=== PATIENT | female | born 2000 | race Caucasian/White ===

== ENCOUNTER 2018-09-18 10:26 | Emergency (ER) | payer BC ==
[~2018-09-18] VITALS: Ht 162.6 cm; Wt 86.2 kg
[2018-09-18 11:05] VITALS: BP 124/83
[2018-09-18] MEDS ORDERED: METH4TAB2 PO (11:50)
--- NOTE | 2018-09-18 11:50 | PHYS DOC ---
Past Medical History Past Medical History: Other Additional Past Medical Histor: ADD Past Surgical History: Other Additional Past Surgical Histo: Tubes in ears at age 3. Alcohol Use: None Drug Use: None Adult General Chief Complaint Chief Complaint: SKIN PROBLEM HPI HPI 18 y/o female presents to ER for c/o sudden onset of throat swelling and she felt SOA with chest tightness. She reports she had felt fine all day and didn't know source of sudden onset of sxs. She reports she did feel anxious with her throat swelling but was able to swallow. She states she drove to her aunt's house and took 2 benedryl pills and has since had improved sxs. Her mom drove her to ER and she reports initially pt sounded muffled but didn't have drooling or wheezing. She reports pt has improved from when she initially picked her up and during drive to ER. Pt is currently denying chest tightness or feeling SOA. She reports her throat swelling has subsided. She is denying feeling anxious any longer since sxs have subsided. Review of Systems Review of Systems Constitutional: Denies fatigue/weakness Eyes: Denies change in visual acuity, redness, or eye pain [] HENT: Denies nasal congestion. Reports she had throat swelling/tightness [employer] which has since subsided Respiratory: Denies cough. Reports felt SOA with onset of sxs- denies currently Cardiovascular: Reports had chest tightness when sxs started- denies currently GI: Denies abdominal pain, nausea, vomiting : Denies urinary sxs Musculoskeletal: Denies back/neck pain or joint pain [] Integument: Denies rash, swelling or skin lesions [] Neurologic: Denies headache, focal weakness or sensory changes. Denies dizziness All other systems were reviewed and found to be within normal limits, except as documented in this note. Physical Exam Physical Exam Constitutional: Well developed, well nourished, no acute distress, non-toxic appearance.Clear speech- no pooling of secretions HENT: Normocephalic, atraumatic, bilateral ears normal, oropharynx moist-no pharyngeal swelling/erythema- uvula midline, no oral exudates, nose normal. No muffled voice Eyes: Pupils equal, conjunctiva normal, no discharge. [] Neck: Normal range of motion, no tenderness, supple, no stridor/gross adenopathy. Trachea midline Cardiovascular: Heart rate regular rhythm, no murmur [] Lungs & Thorax: Bilateral breath sounds clear to auscultation- resp. equal/ nonlabored. Good air movement throughout all lung holt Skin: Warm, dry, no erythema, no rash. [] Back: No tenderness, no CVA tenderness. [] Extremities: No tenderness, no cyanosis, no clubbing, ROM intact, no edema. [] Neurologic: Alert and oriented X 3, normal motor function, normal sensory function, no focal deficits noted. [] Psychologic: Affect normal, judgement normal, mood normal. [] Current Patient Data Vital Signs EKG EKG [] Radiology/Procedures Radiology/Procedures [] Course & Med Decision Making Course & Med Decision Making Pt was evaluated in the ER for concerns of possible allergic reaction. Patient had taken 2 Benadryl tablets prior to arrival approximately one hour ago. Patient and her mother both reports she has had significant improvement in condition. Patient denies ever having shortness of air, throat swelling or pain , or chest pain or tightness. Patient is uncertain as to what caused allergic reaction. Patient states she was at work and was doing paperwork which is common. Patient also reports she did put a new air freshener in her car approximately one week ago and had just gotten into her car turning the heat up and then symptoms started. Discussed removing the air freshener from her car and entertained the air in her car. Patient's exam was normal limits. Patient had clear bilateral lung sounds with no respiratory distress. Discussed option for steroids and at this time both patient and her mother are preferring to hold off on any additional treatment as patient's symptoms have significantly improved. Will provide a prescription for a Medrol Dosepak with education on if symptoms reoccur then patient could start this prescription. Patient has primary care physician which she will follow-up with if symptoms persist or with concerns. Education provided on signs and symptoms to return to ER for- will provide information on contact allergic reaction for education purposes- pt had no hives/rash on exam. Discharge instructions were discussed. Patient does have [id number] Benadryl at home also for symptoms. Encouraged pt to increase fluid intake. Staff Physician Addendum: I was working in the ER during the course of this patient's visit. I was available for consultation as needed, but I was not directly involved in the care of this patient. Nelida Disclaimer Dragon Disclaimer This electronic medical record was generated, in whole or in part, using a voice recognition dictation system. Departure Departure Impression: Primary Impression: Allergic reaction Disposition: 01 HOME, SELF-CARE Condition: STABLE Referrals: ARMOND PAT (PCP) Patient Instructions: Contact Dermatitis, Food Allergy and Anaphylaxis Additional Instructions: As discussed it is unknown what caused your reaction. [id number] antihistamines as needed if symptoms persist as directed on container. If symptoms reoccur you are being provided with a Medrol Dosepak take as directed. Drink plenty of water. With any concerns or if symptoms persist follow-up with primary care physician for reevaluation in 2-3 days. Scripts Methylprednisolone (MEDROL) 4 Mg Tab.ds.pk 1 PKG PO UD, #1 PKG 0 Refills Prov: ALEXANDR CRAFT APRN 09/18/18 ALEXANDR CRAFT APRN Sep 18, 2018 11:50 BILLIE GREEN MD Dec 22, 2018 20:27
== END 2018-09-18 12:00 | disposition home or self-care (01) ==
LOC: ER 10:26
DX: T78.40XA Allergy, unspecified, initial encounter (principal); F98.8 Other specified behavioral and emotional disorders with onset usually occurring in childhood and adolescence
CPT/HCPCS: 99283